=== PATIENT | female | born 1985 | race Caucasian/White ===

== ENCOUNTER 2017-02-07 16:14 | Inpatient (IN) | payer OTHER ==
[2017-02-07] MEDS ORDERED: RINGERS SOLUTION,LACTATED 1,000 ML IV PRN (19:11)
[2017-02-07] MEDS ORDERED: OXYTOCIN 30 UNITS/LACT RINGERS 500 ML IV PRN (19:11)
[2017-02-07] MEDS ORDERED: FentaNYL CITRATE-PF 100 MCG/2 ML VIAL IVP PRN (19:15)
[2017-02-07] MEDS ORDERED: CITRIC ACID/SODIUM CITRATE 30 ML SOLUTION UDCUP PO PRN (19:15)
[2017-02-07] MEDS ORDERED: METOCLOPRAMIDE HCL 5 MG/ML 2 ML VIAL IVP PRN (19:15)
[2017-02-07 19:55] LABS: BASOPHILS % (AUTO) 0.1 % (0.0-2.0); EOSINOPHILS # (AUTO) 0.05 K/uL (0.00-0.70); EOSINOPHILS % (AUTO) 0.56 % (1.0-6.0); HEMATOCRIT 41.5 % (36-46); HEMOGLOBIN 13.9 g/dL (12.0-16.0); LYMPHOCYTES # (AUTO) 1.1 K/uL (1.0-4.8); LYMPHOCYTES % (AUTO) 11.7 % (22.0-44.0); MEAN CORPUSCULAR HGB CONC 33.5 G/dL (31.0-37.0); MEAN CORPUSCULAR VOLUME 95 fL (80-100); MONOCYTES # (AUTO) 0.7 K/uL (0.1-1.0); MONOCYTES % (AUTO) 7.1 % (2.0-9.0); NEUTROPHILS # (AUTO) 7.5 K/uL (1.8-7.7); NEUTROPHILS % (AUTO) 80.5 % (40.0-70.0); PLATELET COUNT (AUTO)-OB 133 K/uL (150-450); RED BLOOD CELL COUNT(AUTO) 4.35 MIL/uL (4.00-5.20); RED CELL DISTRIBUTION WIDTH 13.4 % (11.5-14.5)
[2017-02-07] MEDS ORDERED: OXYGEN THERAPY IH SCH (20:00)
[2017-02-07] MEDS: RINGERS SOLUTION,LACTATED 1,000 ML IV SCH (20:25)
[2017-02-07] MEDS ORDERED: AMPICILLIN SODIUM 2 GM/NS 100 ML IV ONE (20:30)
[2017-02-08] MEDS: AMPICILLIN SODIUM 1 GM/NS 50 ML IV SCH ×4 (01:07→13:33)
[2017-02-08] MEDS: RINGERS SOLUTION,LACTATED 1,000 ML IV SCH ×4 (05:16→19:19)
[2017-02-08] MEDS ORDERED: BUPIVACAINE HCL/PF 0.25% 10 ML VIAL ONE (07:59)
[2017-02-08] MEDS ORDERED: ROPIVACAINE HCL 0.2% 100 ML ED ONE (07:59)
[2017-02-08] MEDS ORDERED: FentaNYL/BUPIV 0.125%/NS/PF 200 ML ED PRN (12:48)
[2017-02-08] MEDS ORDERED: PROMETHAZINE HCL 12.5 MG in SODIUM CHLORIDE 0.9% 50 ML IV PRN (13:00)
[2017-02-08] MEDS ORDERED: DiphenhydrAMINE HCL 50 MG/ML VIAL IVP PRN (13:00)
[2017-02-08] MEDS ORDERED: NALBUPHINE HCL 10 MG/ML VIAL IVP PRN (13:00)
[2017-02-08] MEDS ORDERED: ONDANSETRON HCL 4 MG/2 ML VIAL IVP PRN (13:00)
[2017-02-08] MEDS ORDERED: GENTAMICIN 80 MG/NACL ISO-OSM 50 ML IV SCH (16:00)
[2017-02-08] MEDS ORDERED: GENTAMICIN 80 MG/NACL ISO-OSM 100 ML IV ONE (16:04)
[2017-02-08] MEDS ORDERED: GENTAMICIN SULFATE 160 MG in DEXTROSE 5%-WATER 50 ML IV ONE (16:05)
[2017-02-08] MEDS ORDERED: ACETAMINOPHEN/CODEINE 300-30 MG TABLET PO PRN ×2 (16:45)
[2017-02-08] MEDS ORDERED: GLYCERIN/WITCH HAZEL LEAF 40 PADS JAR TP PRN (16:45)
[2017-02-08] MEDS ORDERED: SENNA/DOCUSATE SODIUM 187-50 MG TABLET PO ONE (16:45)
[2017-02-08] MEDS ORDERED: LANOLIN 7 GM OINTMENT TP PRN (16:45)
[2017-02-08] MEDS ORDERED: BENZOCAINE 20%/MENTHOL 56 GM SPRAY CANISTER TP PRN (16:45)
[2017-02-08] MEDS: IBUPROFEN 800 MG TABLET PO SCH ×2 (17:41→23:43)
[2017-02-08] MEDS: MAGNESIUM HYDROXIDE SUSPENSION 30 ML UDCUP PO SCH (20:51)
[2017-02-09] MEDS: IBUPROFEN 800 MG TABLET PO SCH ×2 (05:26→12:04)
[2017-02-09] MEDS: MAGNESIUM HYDROXIDE SUSPENSION 30 ML UDCUP PO SCH (09:08)
[2017-02-09] MEDS ORDERED: IBUP-2071 PO (11:23)
[2017-02-09] MEDS ORDERED: DSS100 PO (11:25)
[2017-02-09] MEDS ORDERED: PREN1TAB80 PO (11:30)
[2017-02-09] MEDS ORDERED: SENNA/DOCUSATE SODIUM 187-50 MG TABLET PO ONE (14:45)
== END 2017-02-09 17:35 | disposition home or self-care (01) | DRG 775 ==
LOC: 4S 16:14 → OBSVTOIN 16:14
PROVIDERS: ADMIT Obstetrics & Gynecology; ATTEND Obstetrics & Gynecology
PROC: 10907ZC Drainage of Amniotic Fluid, Therapeutic from Products of Conception, Via Natural or Artificial Opening (ICD-10-PCS; principal; 2017-02-08)
PROC: 10D07Z6 Extraction of Products of Conception, Vacuum, Via Natural or Artificial Opening (ICD-10-PCS; 2017-02-08)
PROC: 3E0P3VZ Introduction of Hormone into Female Reproductive, Percutaneous Approach (ICD-10-PCS; 2017-02-08)
PROC: 0W8NXZZ Division of Female Perineum, External Approach (ICD-10-PCS; 2017-02-08)
PROC: 3E0R3BZ Introduction of Anesthetic Agent into Spinal Canal, Percutaneous Approach (ICD-10-PCS; 2017-02-08)
PROC: 00HU33Z Insertion of Infusion Device into Spinal Canal, Percutaneous Approach (ICD-10-PCS; 2017-02-08)
DX: O69.81X0 Labor and delivery complicated by cord around neck, without compression, not applicable or unspecified (principal); Z37.0 Single live birth; Z3A.39 39 weeks gestation of pregnancy
CPT/HCPCS: 59025; J0290; J1580; J2590; J2795; J3490; J7060; J7120